=== PATIENT | female | born 1955 | race Caucasian/White ===

== ENCOUNTER 2018-07-04 08:58 | Emergency (ER) | payer BC ==
[2018-07-04] MEDS ORDERED: cloNIDine TAB* 0.1 MG PO ONE (09:53)
[2018-07-04] MEDS ORDERED: hydrALAZINE TAB* 10 MG PO ONE (12:17)
[2018-07-04 14:02] VITALS: BP 169/85
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
== END 2018-07-04 14:12 | disposition home or self-care (01) ==
LOC: ED 08:58
DX: F32.9 Major depressive disorder, single episode, unspecified (principal); F41.9 Anxiety disorder, unspecified; I10 Essential (primary) hypertension; Z88.2 Allergy status to sulfonamides; Z72.0 Tobacco use
CPT/HCPCS: 99283; A9270-GY

== ENCOUNTER 2018-07-05 23:00 | Emergency (ER) | payer BC ==
[2018-07-06] MEDS ORDERED: LORazepam TAB(*) 1 MG PO ONE (01:09)
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
[2018-07-06 01:59] VITALS: BP 173/93
== END 2018-07-06 01:37 | disposition home or self-care (01) ==
LOC: ED 23:00
DX: R03.0 Elevated blood-pressure reading, without diagnosis of hypertension (principal); F41.9 Anxiety disorder, unspecified; Z72.0 Tobacco use
CPT/HCPCS: 93005; 99282; A9270-GY